=== PATIENT | female | born 1970 | race Caucasian/White ===

== ENCOUNTER 2020-06-21 08:59 | Emergency (ER) | payer BC ==
--- NOTE | 2020-06-21 09:33 | EDM.PDOC ---
ED HPI GENERAL MEDICAL PROBLEM - General Stated Complaint: LEFT EAR SWOLLEN/PAIN Time Seen by Provider: 06/21/20 09:20 Source of Information: Reports: Patient History Limitations: Reports: No Limitations - History of Present Illness INITIAL COMMENTS - FREE TEXT/NARRATIVE: This 49 yo female patient reports to the ED with left ear pain, swelling and a report of bloody drainage this morning. The patient reports her symptoms started on and have gotten worse since that time. The patient reports noticing the drainage this morning. The patient has had similar symptoms in the past. Onset Date: 06/18/20 Duration: Constant Location: Reports: Head (left ear pain) Quality: Reports: Ache, Dull Severity: Moderate Improves with: Reports: None Worsens with: Reports: None Context: Reports: Other Associated Symptoms: Reports: No Other Symptoms Treatments [employer]: Reports: Acetaminophen, NSAIDS Left Ear Pain Score (Numeric/FACES): 9 - Related Data Allergies Allergy/AdvReac Type Severity Reaction Status Date / Time No Known Allergies Allergy Verified 06/21/20 09:15 Home Meds: Home Meds LORazepam [Ativan] 0.5 mg PO ASDIRECTED 06/21/20 [History] lisinopriL [Lisinopril] 20 mg PO DAILY 06/21/20 [History] Past Medical History HEENT History: Reports: Other (See Below) Other HEENT History: ear infection left ear Cardiovascular History: Reports: Hypertension Psychiatric History: Reports: Anxiety Social & Family History - Family History Family Medical History: No Pertinent Family History - Tobacco Use Tobacco Use Status *Q: Current Every Day Tobacco User Years of Tobacco use: 24 Packs/Tins Daily: 1 - Caffeine Use Caffeine Use: Reports: Soda - Recreational Drug Use Recreational Drug Use: No ED ROS ENT - Review of Systems Review Of Systems: Comprehensive ROS is negative, except as noted in HPI. ED EXAM, ENT - Physical Exam Exam: See Below Exam Limited By: No Limitations General Appearance: Alert, WD/WN, Moderate Distress Eye Exam: Bilateral Eye: EOMI, Normal Inspection, PERRL Ears: Canal Discharge, Canal Swelling Nose: Normal Inspection, Normal Mucousa, No Blood Mouth/Throat: Normal Inspection, Normal Gums, Normal Lips, Normal Oropharynx, Normal Teeth Head: Atraumatic, Normocephalic Neck: Normal Inspection, Supple, Non-Tender, Full Range of Motion Respiratory/Chest: No Respiratory Distress, Lungs Clear, Normal Breath Sounds, No Accessory Muscle Use, Chest Non-Tender Cardiovascular: Normal Peripheral Pulses, Regular Rate, Rhythm, No Edema, No Gallop, No JVD, No Murmur, No Rub (Female) Exam: Deferred Rectal (Female) Exam: Deferred Back: Normal Inspection, Full Range of Motion Extremities: Normal Inspection, Normal Range of Motion, Non-Tender, No Pedal Edema, Normal Capillary Refill Neurological: Alert, Oriented, CN II-XII Intact, Normal Cognition, Normal Gait, Normal Reflexes, No Motor/Sensory Deficits Psychiatric: Normal Affect, Normal Mood Skin: Warm, Dry, Intact, Normal Color, No Rash Lymphatic: No Adenopathy Course - Vital Signs Last Recorded V/S: Last Vital Signs Temp 36.4 C 06/21/20 09:12 Pulse 83 06/21/20 09:12 Resp 14 06/21/20 09:12 BP 126/88 06/21/20 09:12 Pulse Ox 100 06/21/20 09:12 Departure - Departure Time of Disposition: :31 Disposition: Home, Self-Care 01 Condition: Fair Clinical Impression: Left otitis externa Qualifiers: Otitis externa type: unspecified type Chronicity: acute Qualified Code(s): H60.502 - Unspecified acute noninfective otitis externa, left ear - Discharge Information *PRESCRIPTION DRUG MONITORING PROGRAM REVIEWED*: Not Applicable *COPY OF PRESCRIPTION DRUG MONITORING REPORT IN PATIENT JENI: Not Applicable Instructions: Otitis Externa, [id number] Forms: ED Department Discharge Care Plan Goals: The patient was advised of the examination results during the visit. The patient was given a script for Cipro/Dex to apply 4 drops into the left ear 2 times per day for 7 days. The patient may take Tylenol or ibuprofen as directed for temporary symptom relief. If the patient has any additional symptoms or concerns, the patient should visit her primary care facility or return to the emergency department. Sepsis Event Note (ED) - Evaluation Sepsis Screening Result: No Definite Risk - Focused Exam Vital Signs: Vital Signs Temp Pulse Resp BP Pulse Ox 06/21/20 09:12 36.4 C 83 14 126/88 100
== END 2020-06-21 09:40 | disposition home or self-care (01) ==
LOC: DL.ED 08:59
DX: H60.502 Unspecified acute noninfective otitis externa, left ear (principal); I10 Essential (primary) hypertension; Z72.0 Tobacco use; Z79.899 Other long term (current) drug therapy
CPT/HCPCS: 99282; 99283

== ENCOUNTER 2021-03-21 15:17 | Emergency (ER) | payer BC ==
[2021-03-21] MEDS ORDERED: Lidocaine 2% Viscous Solution 15 ML Cup PO ONE (16:19)
[2021-03-21] MEDS ORDERED: traMADol 50 MG Tab PO ONE (16:19)
[2021-03-21] MEDS ORDERED: Clindamycin HCl 150 MG Cap PO ONE (16:19)
--- NOTE | 2021-03-21 16:28 | EDM.PDOC ---
Scribed by Archana Cabral 03/21/21 [id number] for Froylan Edwards MD ED HPI GENERAL MEDICAL PROBLEM - General Chief Complaint: ENT Problem Stated Complaint: POSSIBLE INFECTED TOOTH Time Seen by Provider: 03/21/21 15:38 Source of Information: Reports: Patient, RN, RN Notes Reviewed History Limitations: Reports: No Limitations - History of Present Illness INITIAL COMMENTS - FREE TEXT/NARRATIVE: Patient presents to ED by POV with complaints of a toothache for over 2 months. Patient tried to get into dentist but had no luck. Patient's insurance comes into effect March 27. Patient states that left side of face hurts, left neck and left pain from toothache. Left cheek pressure as well. Onset: Gradual Duration: Getting Worse Location: Reports: Other (tooth) Quality: Reports: Ache Severity: Severe Improves with: Reports: None Worsens with: Reports: None Associated Symptoms: Reports: No Other Symptoms Left Pain Score (Numeric/FACES): 7 - Related Data Allergies Allergy/AdvReac Type Severity Reaction Status Date / Time No Known Allergies Allergy Verified 03/21/21 15:38 Home Meds: Home Meds LORazepam [Ativan] 0.5 mg PO ASDIRECTED 06/21/20 [History] lisinopriL [Lisinopril] 20 mg PO DAILY 06/21/20 [History] Past Medical History HEENT History: Reports: Other (See Below) Other HEENT History: ear infection left ear Cardiovascular History: Reports: Hypertension Respiratory History: Reports: None Gastrointestinal History: Reports: None Genitourinary History: Reports: None [employer] History: Reports: None Musculoskeletal History: Reports: None Neurological History: Reports: None Psychiatric History: Reports: Anxiety Endocrine/Metabolic History: Reports: None Hematologic History: Reports: None Immunologic History: Reports: None Oncologic (Cancer) History: Reports: None Dermatologic History: Reports: None - Infectious Disease History Infectious Disease History: Reports: None - Past Surgical History Head Surgeries/Procedures: Reports: None Social & Family History - Family History Family Medical History: No Pertinent Family History - Tobacco Use Tobacco Use Status *Q: Current Some Day Tobacco User Years of Tobacco use: 20 Packs/Tins Daily: 0.5 - Caffeine Use Caffeine Use: Reports: Soda - Recreational Drug Use Recreational Drug Use: No ED ROS ENT - Review of Systems Review Of Systems: Comprehensive ROS is negative, except as noted in HPI. ED EXAM, ENT - Physical Exam Exam: See Below Exam Limited By: No Limitations General Appearance: Alert, WD/WN, No Apparent Distress Eye Exam: Bilateral Eye: Normal Inspection Ears: Normal External Exam, Normal Canal, Hearing Grossly Normal, Normal TMs Nose: Normal Inspection, Normal Mucousa, No Blood Mouth/Throat: Normal Lips, Normal Oropharynx, Dental Pain, Dental Tenderness (Left maxillary molar region) Head: Atraumatic, Normocephalic Neck: Normal Inspection Respiratory/Chest: No Respiratory Distress Neurological: Alert, Oriented, No Motor/Sensory Deficits Psychiatric: Normal Mood Skin: Warm, Dry, Intact, Normal Color, No Rash Course - Vital Signs Last Recorded V/S: Last Vital Signs Temp 97.4 F 03/21/21 15:33 Pulse 82 03/21/21 15:33 Resp 18 03/21/21 15:33 BP 158/93 H 03/21/21 15:33 Pulse Ox 98 03/21/21 15:33 - Orders/Labs/Meds Meds: Medications Discontinued Medications Generic Name Dose Route Start Last Admin Trade Name Shahramq PRN Reason Stop Dose Admin Clindamycin HCl 300 mg 03/21/21 16:19 Clindamycin Hcl 150 Mg Cap PO 03/21/21 16:20 ONETIME ONE Lidocaine HCl 15 ml 03/21/21 16:19 Lidocaine 2% Viscous Solution 15 Ml Cup PO 03/21/21 16:20 ONETIME ONE Tramadol HCl 50 mg 03/21/21 16:19 Tramadol 50 Mg Tab PO 03/21/21 16:20 ONETIME ONE Departure - Departure Time of Disposition: 16:26 Disposition: Home, Self-Care 01 Condition: Good Clinical Impression: Pain, dental, Dental infection - Discharge Information *PRESCRIPTION DRUG MONITORING PROGRAM REVIEWED*: Not Applicable *COPY OF PRESCRIPTION DRUG MONITORING REPORT IN PATIENT JENI: Not Applicable Instructions: Dental Pain Forms: ED Department Discharge Additional Instructions: Rx: Clindamycin 300mg Rx: Tramadol 50mg *Do not drive while under the influence of this medication. Rx: Viscous Lidocaine 2% Follow up with your dentist at the first available appointment. Sepsis Event Note (ED) - Evaluation Sepsis Screening Result: No Definite Risk - Focused Exam Vital Signs: Vital Signs Temp Pulse Resp BP Pulse Ox 03/21/21 15:33 97.4 F 82 18 158/93 H 98 I have read and agree with the documentation that has been completed regarding this visit. By signing this record, I attest that the documentation was completed in my physical presence and is an accurate record of the encounter.
== END 2021-03-21 16:39 | disposition home or self-care (01) ==
LOC: DL.ED 15:17
DX: K04.7 Periapical abscess without sinus (principal); I10 Essential (primary) hypertension; F17.210 Nicotine dependence, cigarettes, uncomplicated; Z79.899 Other long term (current) drug therapy
CPT/HCPCS: 99282; A9270

== ENCOUNTER 2022-08-13 20:51 | Emergency (ER) | payer BC ==
[2022-08-13] MEDS ORDERED: oxyCODONE 5 MG/5 ML Cup PO ONE (22:38)
[2022-08-13 23:17] LABS: BASOPHILS PERCENT AUTO 0.5 % (0.0-1.0); EOSINOPHILS PERCENT AUTO 1.8 % (1.0-3.0); HEMATOCRIT 44.3 % (37.0-47.0); HEMOGLOBIN 15.2 g/dL (12.0-16.0); LYMPHOCYTES PERCENT AUTO 32.1 % (20.5-50.1); MEAN CORPUSCULAR HEMOGLOBIN 30.7 pg (27.0-34.0); MEAN CORPUSCULAR HGB CONC 34.3 g/dL (33.0-35.0); MEAN CORPUSCULAR VOLUME 89.5 fL (80-100); MONOCYTES PERCENT AUTO 9.1 % (2-8); NEUTROPHILS PERCENT AUTO 56.5 % (42.2-75.2); PLATELET COUNT,PLT 269 10^3/uL (150-450); RED BLOOD CELL COUNT 4.95 10^6/uL (4.2-5.4); WHITE BLOOD CELL COUNT,WBC 10.2 10^3/uL (5.0-10.0)
[2022-08-13 23:31] LABS: A/G RATIO 1.5; ALANINE AMINOTRANSFERASE,ALT 31 U/L (14-59); ALBUMIN 3.8 g/dL (3.4-5.0); ALKALINE PHOSPHATASE 60 U/L (46-116); ASPARTATE AMNIOTRANSFERASE,AST 18 U/L (15-37); BILIRUBIN TOTAL 0.5 mg/dL (0.2-1.0); BLOOD UREA NITROGEN,BUN 14 mg/dL (7-18); BUN/CREATININE RATIO 14.7 (No establ ref range); CARBON DIOXIDE,CO2 29 mmol/L (21-32); CHLORIDE,CL 103 mmol/L (98-107); CREATININE 0.95 mg/dL (0.55-1.02); EST CRCL DRUG DOSING (CG) 63.04 mL/min; GLUCOSE RANDOM 102 mg/dL (70-99); PROTEIN TOTAL,TP 6.4 g/dL (6.4-8.2); SODIUM,NA 140 mmol/L (136-145)
[2022-08-13 23:32] LABS: C-REACTIVE PROTEIN < 0.2 mg/dL (0.0-0.9); ESTIMATED GFR 73 mL/min (>=60)
[2022-08-14] MEDS ORDERED: Take Home: Clindamycin HCl 150 MG, 12 Cap Pack PO ONE (01:34)
[2022-08-14] MEDS ORDERED: Take Home: Acetaminophen/oxyCODONE 325-5 MG, 5 Tab Pack PO ONE (01:35)
== END 2022-08-14 02:12 | disposition home or self-care (01) ==
LOC: DL.ED 20:51
DX: K04.7 Periapical abscess without sinus (principal); I10 Essential (primary) hypertension; F17.210 Nicotine dependence, cigarettes, uncomplicated; Z79.899 Other long term (current) drug therapy
CPT/HCPCS: 36415; 80053; 84145; 85025; 86140; 99283; A9270